=== PATIENT | female | born 1950 | race Caucasian/White ===

== ENCOUNTER 2019-05-01 14:05 | Observation (INO) ==
--- NOTE | 2019-05-01 14:30 | EKG Report ---
Test Performed on : 05/01/2019 2:22:06 PM Test Reason : SOB Blood Pressure : / mmHG Vent. Rate : 107 BPM Atrial Rate : 107 BPM P-R Int : 122 ms QRS Dur : 074 ms QT Int : 340 ms P-R-T Axes : 046 027 042 degrees QTc Int : 453 ms Sinus tachycardia. with occasional premature ventricular complexes. Nonspecific ST and T wave abnormality Abnormal ECG When compared with ECG of 15-SEP-2017 11:37, premature ventricular complexes. are now present Nonspecific T wave abnormality now evident in Anterior leads Unconfirmed Result
--- NOTE | 2019-05-01 15:13 | Diag Imaging Result Doc PS360 ---
EXAM: CHEST-2 VIEWS 05/01/2019 HISTORY: SHORTNESS OF BREATH TECHNIQUE: PA and lateral chest COMMENT: There is no evidence of acute cardiac or pulmonary disease. The inspiration is slightly better than on 09/15/2017 otherwise are has been no significant change. IMPRESSION: No acute disease. Electronically signed by Tee Johnson 05/01/2019 3:11 PM
[2019-05-01] MEDS ORDERED: ATIVAN IV ONE ×2 (15:37→23:08)
[2019-05-01] MEDS ORDERED: ZOFRAN IV ONE ×2 (15:38→21:30)
--- NOTE | 2019-05-01 16:08 | Diag Imaging Result Doc PS360 ---
EXAM: CT HEAD W/O CONTRAST 05/01/2019 HISTORY: HEADACHE WEAKNESS TECHNIQUE: This exam was performed using automated exposure control, adjustment of mA or kV according to patient size, and/or use of iterative reconstruction technique. COMMENT: There is no evidence of mass effect, bleed, abnormal extra-axial fluid collection, or hydrocephalus. The visualized paranasal sinuses are clear. The calvarium is intact. IMPRESSION: No evidence of acute intracranial disease. Electronically signed by Tee Johnson 05/01/2019 4:06 PM
[2019-05-01 16:13] LABS: INR 0.95; PROTIME 12.8 Seconds (11.0-16.0)
[2019-05-01 16:14] LABS: PTT 24.4 Seconds (22.3-41.8)
[2019-05-01 16:15] LABS: ALLEN TEST YES; BE -3.3 mmoll (-3.0-3.0); BLOOD TYPE ARTERIAL; HCO3-(ACT) 22.3 mmoll (20.0-26.0); METHB 1.3 % (0.0-1.5); O2(CT) 19.5 mL/dL (15.0-23.0); O2HB 97.1 % (95.0-99.0); PO2(98.6) 135 mmHg (60-100); SAMPLE BLOOD; SAO2 99.4 % (95.0-100.0); THB 14.1 g/dL (11.5-17.4)
[2019-05-01 16:15] LABS: BASO# 0.02 X1000 (0.0-0.2); BASO% 0.3 % (0.0-0.8); EOS# 0.03 X1000 (0.0-0.7); EOS% 0.5 % (0.0-10.0); HEMATOCRIT 39.5 % (37.0-47.0); HEMOGLOBIN 14.1 g/dL (12.0-16.0); LYMPH# 2.34 X1000 (1.2-3.4); LYMPH% 37.6 % (20.5-51.1); MCH 30.9 PG (27-31); MCHC 35.7 g/dL (33-37); MCV 86.6 FL (81-99); MPV 10.9 FL (7.4-10.4); NEUT# 3.33 X1000 (1.4-6.5); NEUT% 53.6 % (42.2-75.2); PLT 297 X1000 (130-400); RBC 4.56 XMIL (4.2-5.4); RDW 12.3 % (11.5-14.5); WBC 6.22 X1000 (4.8-10.8)
[2019-05-01 16:16] LABS: PCO2(98.6) 13 mmHg (35-45); pH(98.6) 7.64 (7.35-7.45)
[2019-05-01 16:17] LABS: MODALITY ROOM AIR
[2019-05-01] MEDS ORDERED: NS 1,000 ML IV ONE (16:27)
[2019-05-01 16:35] LABS: ESTIMATED GFR > 60
[2019-05-01 16:40] LABS: AGAP 27; ALB/GLOB RATIO 2.3; ALBUMIN 4.8 g/dL (3.5-5.0); ALKALINE PHOSPHATASE 92 U/L (32-104); BUN 19 mg/dL (8-22); CHLORIDE 97 mmol/L (98-107); CK PROFILE 125 U/L (24-173); COSMO 281; CREATININE 0.8 mg/dL (0.5-0.9); GLUCOSE 156 mg/dL (70-104); GOT 23 U/L (10-30); GPT 21 U/L (10-36); POTASSIUM 2.9 mmol/L (3.5-5.1); SODIUM 138 mmol/L (136-145); TCO2 14 mmol/L (25-35); TOTAL BILIRUBIN 0.52 mg/dL (0.20-1.00); TOTAL PROTEIN 6.9 g/dL (6.3-8.3)
--- NOTE | 2019-05-01 19:34 | PROVIDER DOCUMENTATION ---
This chart was entered by Radha Mcqueen Scribe, acting as scribe for Anuj Phipps MD. HPI-General Adult - General Source: patient - History of Present Illness -Gen Adult Nature of Presenting Problems: Patient is a 68 year old female who presents with anxiety, excessive yawning, shortness of breath, nausea, vomiting and paresthesia to bilateral legs. states symptoms have been present since Wednesday and worsened. Patient denies chest pain. Reports history of vertigo, HTN and anxiety. Location of Pain/Injury: reports: none Pain Radiation: reports: no radiation Quality of Pain: reports: none Severity: reports: mild Onset/Duration: reports: 3 days ago Timing: reports: still present Context/Activities at Onset: reports: light activity Associated Symptoms: reports: anxiety, nausea, shortness of breath, vomiting, other (paresthesia to bilateral lower extremities and excessive yawning) Similar Symptoms Previously?: Yes Recently seen or treated by another doctor?: No <Anuj Phipps - Last Filed: 05/01/19 19:33> <Belem Peacock - Last Filed: 05/01/19 21:25> - General Chief Complaint: Stroke-Like Symptoms Stated Complaint: SOB Time Seen by Provider: 05/01/19 15:31 Allergies/Adverse Reactions: Patient Allergies Allergy/AdvReac Type Severity Reaction Status Date / Time sulfur dioxide Allergy NAUSEA Verified 05/01/19 20:17 acetaminophen [From Lortab] AdvReac NAUSEA/VOMI Verified 09/15/17 16:28 TING hydrocodone [From Lortab] AdvReac NAUSEA/VOMI Verified 09/15/17 16:28 TING meperidine [From Demerol] AdvReac VOMITING Verified 09/15/17 16:28 Home Medications: Home Medication List Medication Instructions Recorded Confirmed Last Taken Type Alendronate Sodium [Fosamax] 10 mg PO ONCE PRN 05/01/19 05/01/19 Unknown History Calcium Citrate/Vitamin D3 1 tab PO QAM 05/01/19 05/01/19 Unknown History [Citracal + D Maximum Caplet] Irbesartan/Hydrochlorothiazide 300 mg PO QAM 05/01/19 05/01/19 Unknown History [Irbesartan-Hctz 300-12.5 mg Tb] Loratadine/Pse E.r. 24 Hr 1 tab PO QAM 05/01/19 05/01/19 Unknown History [Claritin-D 24 Hr] Lysine [l-Lysine] 500 mg PO QHS 05/01/19 05/01/19 Unknown History Sertraline HCl 50 mg PO QHS 05/01/19 05/01/19 Unknown History Vitamin B Complex 1 cap PO QAM 05/01/19 05/01/19 Unknown History Review of Systems - Adult - REVIEW OF SYSTEMS - ADULT Constitutional: reports: no symptoms reported. denies: chills, fever, fatique Eyes: reports: no symptoms reported Ears, Nose, Mouth & Throat: reports: no symptoms reported Cardiovascular: reports: no symptoms reported Respiratory: reports: see HPI, shortness of breath. denies: cough, wheezing Gastrointestinal: reports: see HPI, nausea, vomiting. denies: diarrhea Genitourinary: reports: no symptoms reported Musculoskeletal: reports: no symptoms reported Integumentary: reports: no symptoms reported Neurological: reports: see HPI, paresthesia (bilateral lower extremities.). denies: numbness, syncope Psychiatric: reports: see HPI, anxiety. denies: depression, insomnia Endocrine: reports: no symptoms reported Hematologic/Lymphatic: reports: no symptoms reported Allergic/Immunologic: reports: no symptoms reported All Other Systems: Reviewed and Negative <Anuj Phipps - Last Filed: 05/01/19 19:33> Past History - Adult - PAST MEDICAL HISTORY-ADULT Review of Records: reports: Old Records Reviewed, Nursing Assessment Review, Medications Reviewed, Social history reviewed & non-contributory. Major Childhood Illnesses: reports: denies history Cardiovascular: reports: HTN Respiratory: reports: denies history Gastrointestinal: reports: GERD Obstetrical/Gynecological: reports: denies history Genitourinary: reports: denies history Musculoskeletal: reports: denies history Neurological: reports: denies history Psychiatric: reports: anxiety Endocrine/Immune: reports: denies history Other Conditions: reports: denies history - PRIOR SURGERIES/PROCEDURES Surgical/Procedure History: reports: appendectomy, cholecystectomy, hysterectomy , tonsillectomy - IMMUNIZATION STATUS Childhood Immunizations: See Nurse Assessment Flu Vaccine: See Nurse Assessment - FAMILY HISTORY Family History: reviewed, not pertinent - SOCIAL HISTORY Smoking: denies Substance Use: denies Living Situation: family <Anuj Phipps - Last Filed: 05/01/19 19:33> Physical Exam-General - PHYSICAL EXAM-ADULT Initial Vital Signs Reviewed: Yes - CONSTITUTIONAL General Appearance: alert, no apparent distress, anxious. negative: lethargic - HEAD, EARS, NOSE, MOUTH & THROAT HENMT: normocephalic/atraumatic, moist mucous membranes. negative: angioedema - RESPIRATORY Respiratory: chest non-tender, lungs clear, normal breath sounds. negative: cr ackles, stridor - CARDIOVASCULAR Cardiovascular: normal peripheral pulses, tachycardia. negative: systolic murmur - GASTROINTESTINAL (ABDOMEN) Abdominal Exam: normal bowel sounds, non tender, soft. negative: guarding, rebound - MUSCULOSKELETAL Extremity: normal inspection. negative: deformity, erythema - SKIN Integumentary: normal color, normal turgor, warm/dry. negative: cyanosis, ecchymosis, jaundice - NEUROLOGIC Neurologic: grossly normal. negative: aphasia, facial droop, sensory deficit - PSYCHIATRIC Psych/Mental Status: oriented x 3, anxious. negative: paranoid <Anuj Phipps - Last Filed: 05/01/19 19:33> Progress - PLAN OF CARE/RESULTS Progress/Plan/Lab Results: Vital Signs - 8 hr 05/01/19 14:19 Temperature 97.3 F L Pulse Rate 110 H Respiratory Rate 26 H Blood Pressure 144/70 O2 Sat by Pulse Oximetry 99 Orders Category Date Time Status Cardiac Monitoring DIRECTED Care 05/01/19 14:27 Active Finger Stick Blood Sugar (ED) DIRECTED Care 05/01/19 14:27 Active Oxygen Therapy- ED Nursing DIRECTED Care 05/01/19 14:27 Active Saline Loc NOW Care 05/01/19 14:27 Active CHEST-2 VIEWS [RAD] Stat Exams 05/01/19 14:[address] HEAD W/O CONTRAST [CT] Stat Exams 05/01/19 14:33 Ordered ABG [RESP] Routine Lab 05/01/19 14:27 Ordered CBC WITH ELECTRONIC DIFF [HEME] Stat Lab 05/01/19 14:27 Uncollected CK PROFILE [SP CHEM] Stat Lab 05/01/19 14:27 Uncollected COMPREHENSIVE METABOLIC PANEL [CHEM] Stat Lab 05/01/19 14:27 Uncollected PROTIME WITH INR [COAG] Stat Lab 05/01/19 14:27 Uncollected PTT [COAG] Stat Lab 05/01/19 14:27 Uncollected TROPONIN T Stat Lab 05/01/19 14:27 Uncollected Lorazepam [Ativan] Med 05/01/19 15:37 Once 1 mg IV NOW ONE Altered Mental Status Stat Oth 05/01/19 14:27 Ordered EKG [EKG] Stat Ther 05/01/19 14:27 Draft Result Diagrams: 05/01/19 15:34 05/01/19 15:34 - EKG 1 Time of EKG reading by physician:: 14:22 EKG Read and Signed by:: Anuj Phipps EKG Interpretation (*Must complete 3 of following elements*): Abnormal Rate: 107 Rhythm: sinus tachycardia with occasional premature ventricular complexes Crowder: normal CT Interval: normal Comments: nonspecific ST and T wave abnormality. - XRAY 1 XRAY Study: Chest Impression: See EMR Report ( EXAM: CHEST-2 VIEWS 05/01/2019 HISTORY: SHORTNESS OF BREATH TECHNIQUE: PA and lateral chest COMMENT: There is no evidence of acute cardiac or pulmonary disease. The inspiration is slightly better than on 09/15/2017 otherwise are has been no significant change. IMPRESSION: No acute disease. Electronically signed by Tee Johnson 05/01/2019 3:11 PM 05/01/19 1511 Interpreting Physician: Tee Johnson MD Dictated Date/Time: 05/01/19 1510 cc: Anuj Phipps MD; Ashu Wang MD) - CT/MRI 1 CT Study: Head Impression: See EMR Report (EXAM: CT HEAD W/O CONTRAST 05/01/2019 HISTORY: HEADACHE WEAKNESS TECHNIQUE: This exam was performed using automated exposure control, adjustment of mA or kV according to patient size, and/or use of iterative reconstruction technique. COMMENT: There is no evidence of mass effect, bleed, abnormal extra-axial fluid collection, or hydrocephalus. The visualized paranasal sinuses are clear. The calvarium is intact. IMPRESSION: No evidence of acute intracranial disease. Electronically signed by Tee Johnson 05/01/2019 4:06 PM 05/01/19 1606 Interpreting Physician: Tee Johnson MD Dictated Date/Time: 05/01/19 1605 cc: Anuj Phipps MD; Ashu Wang MD) - CHANGE OF SHIFT REPORT (ED Provider) 1 Report Given and Care Transferred to:: Dr Peacock Time of Transfer: 19:00 Items Pending: Labs <Anuj Phipps - Last Filed: 05/01/19 19:33> - PLAN OF CARE/RESULTS Progress/Plan/Lab Results: Vital Signs - 8 hr 05/01/19 14:19 05/01/19 15:37 05/01/19 16:10 Temperature 97.3 F L Pulse Rate 110 H 102 H 83 Respiratory Rate 26 H 19 14 Blood Pressure 144/70 129/71 O2 Sat by Pulse Oximetry 99 98 99 05/01/19 16:24 05/01/19 17:02 05/01/19 17:20 Temperature Pulse Rate 82 74 76 Respiratory Rate 17 8 L 9 L Blood Pressure 150/87 133/53 O2 Sat by Pulse Oximetry 99 100 100 05/01/19 18:02 05/01/19 18:40 05/01/19 18:50 Temperature Pulse Rate 69 79 84 Respiratory Rate 17 20 20 Blood Pressure 134/60 O2 Sat by Pulse Oximetry 100 100 99 05/01/19 19:00 05/01/19 19:02 05/01/19 19:03 Temperature Pulse Rate 72 74 71 Respiratory Rate 20 20 9 L Blood Pressure 157/77 O2 Sat by Pulse Oximetry 99 100 100 05/01/19 19:10 05/01/19 19:20 05/01/19 19:30 Temperature Pulse Rate 70 65 73 Respiratory Rate 19 13 16 Blood Pressure O2 Sat by Pulse Oximetry 98 96 95 05/01/19 19:40 05/01/19 19:50 05/01/19 20:00 Temperature Pulse Rate 71 69 76 Respiratory Rate 10 L 20 17 Blood Pressure O2 Sat by Pulse Oximetry 99 97 99 05/01/19 20:02 05/01/19 20:03 05/01/19 20:10 Temperature Pulse Rate 72 77 72 Respiratory Rate 18 14 18 Blood Pressure 138/87 O2 Sat by Pulse Oximetry 98 100 100 05/01/19 20:20 05/01/19 20:30 05/01/19 20:40 Temperature Pulse Rate 72 76 86 Respiratory Rate 20 16 20 Blood Pressure O2 Sat by Pulse Oximetry 99 98 99 05/01/19 20:50 Temperature Pulse Rate 77 Respiratory Rate 20 Blood Pressure O2 Sat by Pulse Oximetry 99 Laboratory Results - last 24 hr 05/01/19 05/01/19 05/01/19 14:31 15:34 15:34 WBC 6.22 RBC 4.56 Hgb 14.1 Hct 39.5 MCV 86.6 MCH 30.9 MCHC 35.7 RDW Std Deviation 12.3 Plt Count 297 MPV 10.9 H Immature Gran % (Auto) 0.0 Neut % (Auto) 53.6 Lymph % (Auto) 37.6 [place] % (Auto) 8.0 Eos % (Auto) 0.5 Baso % (Auto) 0.3 Immature Gran # (Auto) 0.00 Neut # (Auto) 3.33 Lymph # (Auto) 2.34 [place] # (Auto) 0.50 Eos # (Auto) 0.03 Baso # (Auto) 0.02 PT INR PTT (Actin FS) D-Dimer, Quantitative Specimen Type Sample Site pH pCO2 pO2 HCO3 Base Excess Oxyhemoglobin ABG O2 Sat (Calculated) ABG O2 Saturation ABG Carboxyhemoglobin ABG Methemoglobin Todd Test A-a O2 Difference Total Hemoglobin Lactate Blood Gas Modality FiO2 % Sodium 138 Potassium 2.9 L Chloride 97 L Carbon Dioxide 14 L Anion Gap 27 BUN 19 Creatinine 0.8 Estimated GFR/1.73 m2 > 60 BUN/Creatinine Ratio 24 Glucose 156 H POC Glucose 118 H Calculated Osmolality 281 Calcium 10.0 Total Bilirubin 0.52 AST 23 ALT 21 Alkaline Phosphatase 92 Creatine Kinase 125 Troponin T Total Protein 6.9 Albumin 4.8 Globulin 2.1 Albumin/Globulin Ratio 2.3 Urine Source Urine Color Urine Turbidity Urine pH Ur Specific [place] Urine Protein Ur Glucose (Stick) Ur Ketones (Stick) Urine Blood Urine Nitrite Urine Bilirubin Urobilinogen Dipstick Urine Leukocytes Urine WBC (Auto) Urine RBC (Auto) U Epithel Cells (Auto) Urine Bacteria (Auto) 05/01/19 05/01/19 05/01/19 15:34 15:34 15:34 WBC RBC Hgb Hct MCV MCH MCHC RDW Std Deviation Plt Count MPV Immature Gran % (Auto) Neut % (Auto) Lymph % (Auto) [place] % (Auto) Eos % (Auto) Baso % (Auto) Immature Gran # (Auto) Neut # (Auto) Lymph # (Auto) [place] # (Auto) Eos # (Auto) Baso # (Auto) PT 12.8 INR 0.95 PTT (Actin FS) 24.4 D-Dimer, Quantitative 0.31 Specimen Type Sample Site pH pCO2 pO2 HCO3 Base Excess Oxyhemoglobin ABG O2 Sat (Calculated) ABG O2 Saturation ABG Carboxyhemoglobin ABG Methemoglobin Todd Test A-a O2 Difference Total Hemoglobin Lactate Blood Gas Modality FiO2 % Sodium Potassium Chloride Carbon Dioxide Anion Gap BUN Creatinine Estimated GFR/1.73 m2 BUN/Creatinine Ratio Glucose POC Glucose Calculated Osmolality Calcium Total Bilirubin AST ALT Alkaline Phosphatase Creatine Kinase Troponin T < 0.010 Total Protein Albumin Globulin Albumin/Globulin Ratio Urine Source Urine Color Urine Turbidity Urine pH Ur Specific [place] Urine Protein Ur Glucose (Stick) Ur Ketones (Stick) Urine Blood Urine Nitrite Urine Bilirubin Urobilinogen Dipstick Urine Leukocytes Urine WBC (Auto) Urine RBC (Auto) U Epithel Cells (Auto) Urine Bacteria (Auto) 05/01/19 05/01/19 05/01/19 15:52 16:10 18:40 WBC RBC Hgb Hct MCV MCH MCHC RDW Std Deviation Plt Count MPV Immature Gran % (Auto) Neut % (Auto) Lymph % (Auto) [place] % (Auto) Eos % (Auto) Baso % (Auto) Immature Gran # (Auto) Neut # (Auto) Lymph # (Auto) [place] # (Auto) Eos # (Auto) Baso # (Auto) PT INR PTT (Actin FS) D-Dimer, Quantitative Specimen Type ARTERIAL Sample Site L RADIAL pH 7.64 H* pCO2 13 L* pO2 135 H HCO3 22.3 Base Excess -3.3 L Oxyhemoglobin 97.1 ABG O2 Sat (Calculated) 19.5 ABG O2 Saturation 99.4 ABG Carboxyhemoglobin 1.00 ABG Methemoglobin 1.3 Todd Test YES A-a O2 Difference -2.0 Total Hemoglobin 14.1 Lactate 6.40 H* Blood Gas Modality ROOM AIR FiO2 % 21.0 Sodium Potassium Chloride Carbon Dioxide Anion Gap BUN Creatinine Estimated GFR/1.73 m2 BUN/Creatinine Ratio Glucose POC Glucose 154 H Calculated Osmolality Calcium Total Bilirubin AST ALT Alkaline Phosphatase Creatine Kinase Troponin T Total Protein Albumin Globulin Albumin/Globulin Ratio Urine Source CLEAN CATCH Urine Color YELLOW Urine Turbidity CLEAR Urine pH 7.0 Ur Specific [place] 1.016 Urine Protein NEGATIVE Ur Glucose (Stick) NEGATIVE Ur Ketones (Stick) 80 A Urine Blood NEGATIVE Urine Nitrite NEGATIVE Urine Bilirubin NEGATIVE Urobilinogen Dipstick NORMAL Urine Leukocytes NEGATIVE Urine WBC (Auto) <10 Urine RBC (Auto) <10 U Epithel Cells (Auto) <10 Urine Bacteria (Auto) NEGATIVE 05/01/19 19:54 WBC RBC Hgb Hct MCV MCH MCHC RDW Std Deviation Plt Count MPV Immature Gran % (Auto) Neut % (Auto) Lymph % (Auto) [place] % (Auto) Eos % (Auto) Baso % (Auto) Immature Gran # (Auto) Neut # (Auto) Lymph # (Auto) [place] # (Auto) Eos # (Auto) Baso # (Auto) PT INR PTT (Actin FS) D-Dimer, Quantitative Specimen Type Sample Site pH pCO2 pO2 HCO3 Base Excess Oxyhemoglobin ABG O2 Sat (Calculated) ABG O2 Saturation ABG Carboxyhemoglobin ABG Methemoglobin Todd Test A-a O2 Difference Total Hemoglobin Lactate Blood Gas Modality FiO2 % Sodium Potassium Chloride Carbon Dioxide Anion Gap BUN Creatinine Estimated GFR/1.73 m2 BUN/Creatinine Ratio Glucose POC Glucose 115 H Calculated Osmolality Calcium Total Bilirubin AST ALT Alkaline Phosphatase Creatine Kinase Troponin T Total Protein Albumin Globulin Albumin/Globulin Ratio Urine Source Urine Color Urine Turbidity Urine pH Ur Specific [place] Urine Protein Ur Glucose (Stick) Ur Ketones (Stick) Urine Blood Urine Nitrite Urine Bilirubin Urobilinogen Dipstick Urine Leukocytes Urine WBC (Auto) Urine RBC (Auto) U Epithel Cells (Auto) Urine Bacteria (Auto) Orders Category Date Time Status Cardiac Monitoring DIRECTED Care 05/01/19 14:27 Active Finger Stick Blood Sugar (ED) DIRECTED Care 05/01/19 14:27 Active Oxygen Therapy- ED Nursing DIRECTED Care 05/01/19 14:27 Active Saline Loc NOW Care 05/01/19 14:27 Active CHEST-2 VIEWS [RAD] Stat Exams 05/01/19 14:[address] HEAD W/O CONTRAST [CT] Stat Exams 05/01/19 14:33 Completed ABG [RESP] Routine Lab 05/01/19 16:10 Completed BLOOD CULTURE [BLDCUL] Stat Lab 05/01/19 16:40 Results CBC WITH ELECTRONIC DIFF [HEME] Stat Lab 05/01/19 15:34 Completed CK PROFILE [SP CHEM] Stat Lab 05/01/19 15:34 Completed COMPREHENSIVE METABOLIC PANEL [CHEM] Stat Lab 05/01/19 15:34 Completed D-DIMER [COAG] Stat Lab 05/01/19 15:34 Completed Ketone [ACETONE SERUM] [CHEM] Stat Lab 05/01/19 21:08 Uncollected PROTIME WITH INR [COAG] Stat Lab 05/01/19 15:34 Completed PTT [COAG] Stat Lab 05/01/19 15:34 Completed TROPONIN T Stat Lab 05/01/19 15:34 Completed UA [URINALYSIS W/POSS RFLX CULT] [URINALYSIS] Stat Lab 05/01/19 18:40 Completed 0.9% Sodium Chloride Inj [Ns] 1,000 ml Med 05/01/19 16:27 Discontinued IV 999 mls/hr Lorazepam [Ativan] Med 05/01/19 15:37 Discontinued 1 mg IV NOW ONE Ondansetron [Zofran] Med 05/01/19 15:38 Discontinued 4 mg IV NOW ONE Potassium Chloride 10 Meq/Swi Med 05/01/19 19:57 Discontinued 10 meq in 100 ml IV ONCE Potassium Chloride E.r. [Klor-Con] Med 05/01/19 19:59 Discontinued 40 meq PO NOW ONE Altered Mental Status Stat Oth 05/01/19 14:27 Ordered EKG [EKG] Stat Ther 05/01/19 14:27 Draft Result Diagrams: 05/01/19 15:34 05/01/19 15:34 - CONSULTS/PCP/HOSPITALIST Notification #1 *Consult/PCP/Hospitalist*: D/W DR BARNETT Time Discussed: 21:24 Consult Disposition: Admit <Belem Peacock - Last Filed: 05/01/19 21:25> Departure <Anuj Phipps - Last Filed: 05/01/19 19:33> - Departure Date of Disposition Decision: 05/01/19 Time of Disposition Decision: 21:24 Certified Medical Emergency: Emergent - Critical Care Note This patient required my direct & personal management of CC.: No <Belem Peacock - Last Filed: 05/01/19 21:25> - Departure DIAGNOSIS: Metabolic alkalosis, Hypokalemia, Elevated serum lactate dehydrogenase (LDH) Disposition: ADMITTED INPATIENT 09 Condition: Stable Referrals and Follow-Ups: Ashu Wang MD [Primary Care Provider] - Attestation - Physician/ GIGI Attestation The physician spent face to face time with patient:: Yes Advanced Practice Provider documentation review:: Supervising physician onsite and consulted in the evaluation and care of this patient. The physician did have a face to face encounter with the patient. <Anuj Phipps - Last Filed: 05/01/19 19:33> This chart was documented by the indicated scribe, (Radha Mcqueen Scribe) and accurately reflects the services I performed and decisions made by me, Anuj Phipps MD, as attested by the provider's signature.
[2019-05-01 19:45] LABS: URINE SOURCE CLEAN CATCH
[2019-05-01 19:55] LABS: UR EPITHELIAL CELLS <10 /HPF (<10); URINE BACTERIA NEGATIVE /HPF; URINE RBC <10 /HPF (<10); URINE WBC <10 /HPF (<10)
[2019-05-01] MEDS ORDERED: POTASSIUM CHLORIDE 10 MEQ/SWI 10 MEQ/100 ML IVPB IV ONE (19:57)
[2019-05-01 19:58] LABS: BILIRUBIN URINE NEGATIVE (NEGATIVE); BLOOD URINE NEGATIVE (NEGATIVE); COLOR YELLOW; GLUCOSE URINE NEGATIVE (NEGATIVE); KETONE URINE 80 mg/dL (NEGATIVE); LEUKOCYTES URINE NEGATIVE (NEGATIVE); NITRITE URINE NEGATIVE (NEGATIVE); PROTEIN URINE NEGATIVE (NEGATIVE); SP GRAVITY URINE 1.016; TURBIDITY URINE CLEAR (CLEAR); UROBILINOGEN URINE NORMAL (NORMAL)
[2019-05-01] MEDS ORDERED: KLOR-CON PO ONE (19:59)
[2019-05-01] MEDS ORDERED: ZOLOFT PO SCH (21:00)
[2019-05-01] MEDS ORDERED: LOVENOX SUBQ SCH (22:21)
[2019-05-01] MEDS ORDERED: ZOFRAN IV PRN (22:21)
[2019-05-01] MEDS: NS 1,000 ML IV SCH (23:46)
[2019-05-01 23:58] LABS: HEMOGLOBIN A1C 4.9 % (4.8-6.0)
[2019-05-02 02:17] LABS: URINE SOURCE CLEAN CATCH
[2019-05-02 02:26] LABS: BILIRUBIN URINE NEGATIVE (NEGATIVE); BLOOD URINE NEGATIVE (NEGATIVE); COLOR STRAW; GLUCOSE URINE NEGATIVE (NEGATIVE); KETONE URINE 10 mg/dL (NEGATIVE); LEUKOCYTES URINE NEGATIVE (NEGATIVE); NITRITE URINE NEGATIVE (NEGATIVE); PROTEIN URINE NEGATIVE (NEGATIVE); SP GRAVITY URINE 1.006; TURBIDITY URINE CLEAR (CLEAR); UROBILINOGEN URINE NORMAL (NORMAL)
[2019-05-02 02:29] LABS: UR EPITHELIAL CELLS <10 /HPF (<10); URINE BACTERIA NEGATIVE /HPF; URINE RBC <10 /HPF (<10); URINE WBC <10 /HPF (<10)
--- NOTE | 2019-05-02 06:16 | HISTORY AND PHYSICAL ---
PRIMARY CARE PROVIDER: Ashu Wang MD CHIEF COMPLAINT: Excessive yawning and shortness of breath since last Wednesday or . HISTORY OF PRESENT ILLNESS: Apparently she has had a history of anxiety, hypertension and vertigo. She does take Zoloft for generalized anxiety. Apparently since last Wednesday this has worsened, the shortness of breath and anxiety. She feels as if she is yawning to take a deep breath. At any rate, today she started having some nausea with vomiting, began to hyperventilate and started feeling paresthesias in bilateral legs. When her ABGs were checked in the emergency room she had blown off her CO2; it was 13. She was noticed to be in respiratory alkalosis. Otherwise, her labs were grossly normal other than a potassium of 2.9. CT scan was obtained as well as a chest x-ray which were both grossly normal. Lungs were maybe mildly hyperinflated, but otherwise chest x-ray showed no acute disease. She will be placed on observation status for further evaluation and treatment. PAST MEDICAL HISTORY: Hypertension, anxiety, seasonal allergies. PREVIOUS SURGICAL HISTORY: Tonsillectomy, appendectomy, cholecystectomy, bilateral tubal ligation. SOCIAL HISTORY: She works with [employer]. She is and lives with her . No tobacco, alcohol or illicit drugs. Has been around heavy secondary smoke for most of her life. FAMILY HISTORY: Sister and parents all had coronary artery disease and myocardial infarction. Mother also had CVA. ALLERGIES: [place], meperidine, and sulfa, all causing nausea and vomiting. HOME MEDICATIONS: Calcitriol plus D maximum tablet 1 p.o. q.a.m., Claritin D 1 p.o. q.a.m., Lysine 500 mg p.o. at bedtime, sertraline 50 mg p.o. at bedtime, Fosamax 10 mg p.o. one p.r.n., irbesartan/hydrochlorothiazide 300/12.5 p.o. q.a.m., vitamin B complex 1 p.o. q.a.m. REVIEW OF SYSTEMS: A 14-point review of systems conducted with the patient. Pertinent positives listed above in the HPI. All other systems were reviewed and found to be negative. PHYSICAL EXAMINATION: VITAL SIGNS: Temperature 98.3, pulse 73, respiration 16, blood pressure 137/78, oxygen saturation 100% on room air. GENERAL: A pleasant 68-year-old female lying in the medical floor bed; answers all questions appropriately. She is alert and oriented x3, seems somewhat anxious. HEENT: Head is atraumatic, normocephalic. Pupils equal, round and reactive to light. Extraocular eye movements intact. Sclerae are anicteric. Conjunctivae are pink. Oral mucosa is moist. NECK: Supple. No JVD. No thyromegaly. Trachea is midline. No cervical lymphadenopathy. CARDIAC: S1, S2 appreciated. No murmurs, gallops or rubs. LUNGS: Clear to auscultation bilaterally. No rhonchi, wheezes or rubs. Symmetric rise and fall with respirations. ABDOMEN: Soft, nondistended, nontender. Bowel sounds present in all 4 quadrants, normoactive. No pulsatile mass. No organomegaly. EXTREMITIES: No clubbing, cyanosis or edema. Two-plus pedal pulses bilaterally. GENITOURINARY: No bladder distention. Patient voids. Otherwise deferred. NEUROLOGICAL: Alert and oriented times 3. Cranial nerves 2-12 grossly intact. No palmar drift. No facial asymmetry. No weakness in any extremity. DIAGNOSTIC DATA: CT of the head within normal limits. Chest x-ray may show mild changes related to COPD, but no infiltrates, cardiomegaly, edema or effusions. LABORATORY DATA: CBC within normal limited. Coagulations within normal limits. D-dimer 0.31. ABGs: pH 7.64, pCO2 13, pO2 135, bicarbonate 22.3 (this was on room air). Sodium 138, potassium 2.9, chloride 97, carbon dioxide 14, BUN 19, creatinine 0.8, glucose 156. Urine unremarkable. Acetone normal level. ASSESSMENT AND PLAN: 1. Respiratory alkalosis. Believe this was related to the patient having a panic attack with hyperventilation. She is known to have anxiety. She was given Ativan in the emergency room and has calmed down, and is visibly doing better at this time. Will continue to monitor. 2. Nausea and vomiting. This is of unknown etiology. The patient denies any abdominal pain. She stated that it just started today. I do not know if this was also related to stress and anxiety. Will continue to monitor. Give Zofran as needed. Again, laboratory data was grossly normal. 3. Hypokalemia. This is possibly related to patient's nausea and vomiting. Will replete and recheck. 4. Hyperglycemia. Will check hemoglobin A1c. The patient does not carry a diagnosis of diabetes mellitus. Will continue to monitor. 5. Questionable transient ischemic attack. This feels unlikely, however, CT was negative. Will check a lipid profile, continue to monitor. The patient has no neurological deficits. 6. Further recommendations per patient's clinical course. Dictated by ROBYN Clinton for Justin Mitchell MD I have performed a face to face diagnostic evaluation. Labs/ Xrays- reviewed. Exam- chest- clear, CV-regular. A/P- Nausea and vomiting, hypokalemia- Admit, IV fluids, replace potassium. Dr. Mitchell cc: ROBYN Clinton MD [facility] Mashburn, MD [facility]
[2019-05-02 07:20] LABS: BASO# 0.01 X1000 (0.0-0.2); BASO% 0.2 % (0.0-0.8); EOS# 0.02 X1000 (0.0-0.7); EOS% 0.4 % (0.0-10.0); HEMATOCRIT 34.7 % (37.0-47.0); LYMPH# 1.71 X1000 (1.2-3.4); LYMPH% 30.3 % (20.5-51.1); MCH 30.8 PG (27-31); MCHC 34.6 g/dL (33-37); MONO# 0.59 X1000 (0.11-0.59); MONO% 10.4 % (1.7-9.3); MPV 10.3 FL (7.4-10.4); NEUT# 3.32 X1000 (1.4-6.5); NEUT% 58.7 % (42.2-75.2); PLT 212 X1000 (130-400); RDW 12.5 % (11.5-14.5); WBC 5.65 X1000 (4.8-10.8)
[2019-05-02 08:06] LABS: AGAP 10; BUN 10 mg/dL (8-22); CALCIUM 8.4 mg/dL (8.8-10.2); CHLORIDE 108 mmol/L (98-107); COSMO 281; CREATININE 0.6 mg/dL (0.5-0.9); ESTIMATED GFR > 60; GLUCOSE 83 mg/dL (70-104); MAGNESIUM 1.9 mg/dL (1.5-2.7); POTASSIUM 4.4 mmol/L (3.5-5.1); SODIUM 142 mmol/L (136-145); TCO2 24 mmol/L (25-35)
[2019-05-02 08:08] LABS: CHOLESTEROL 194 mg/dL (0-200); HDL 59 mg/dL (45-65); LDL 115 mg/dL; TRIGLYCERIDES 98 mg/dL (35-135); VLDL 20 mg/dL
[2019-05-02] MEDS ORDERED: AVAPRO PO SCH (09:00)
[2019-05-02] MEDS ORDERED: HYDROCHLOROTHIAZIDE PO SCH (09:00)
[2019-05-02] MEDS ORDERED: VICON-C PO SCH (09:00)
[2019-05-02] MEDS ORDERED: CITRACAL + D PO SCH (09:00)
[2019-05-02] MEDS: NS 1,000 ML IV SCH (09:58)
[2019-05-02 15:51] VITALS: BP 118/57
[2019-05-02] MEDS ORDERED: PATIENT'S OWN MED PO SCH (21:00)
--- NOTE | 2019-05-02 23:43 | DISCHARGE SUMMARY ---
ADMISSION DATE: 05/01/2019 DISCHARGE DATE: 05/02/2019 DISCHARGE DIAGNOSIS: 1. Hypokalemia, symptomatic. 2. Dehydration. 3. Respiratory alkalosis probably from hyperventilation and dehydration. Briefly, this is a 68-year-old female with hypertension, anxiety. 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 She does not usually stay very well hydrated because she is afraid of having to go to the bathroom. She is on a diuretic low-dose hydrochlorothiazide 12.5 and her blood pressure medication. So so she started feeling anxious and having strange sensation of paresthesias in the back of her head. Apparently, her blood pressure was elevated and she came in for evaluation. She started having fairly intractable nausea, vomiting without really good explanation. Her potassium was low at 2.9 and she was placed in obs. All her other workup was negative. She did have a mild metabolic, she really had a metabolic alkalosis with hypochloremia and I think it was probably all just related to profound throwing up and things of that nature. She is much improved since fluids and hydration. Her bicarb has come up to 24. Her potassium is 4.4. Urine is clear. Everything looks good from that standpoint. Plan is to send her home. I am suspicious that the diuretic may have led to her and she may have had a contraction alkalosis and I think she probably needs stop hydrochlorothiazide in favor of another blood pressure medicine. At this point I am just going to leave her on Avapro. It is not even really clear she had a TIA I do not think, she did have some mild hyperglycemia but not enough to constitute a diagnosis of diabetes. Her A1c is only 4.9. I am going to encourage her stay hydrated. Change from Avapro/hydrochlorothiazide to just Avapro plain. She may need additional blood pressure medicine. Her blood pressure was elevated when she came in but since then she has been 108, 118, 111 and I am just going to leave her on plain Avapro and she will need followup in a week with her PCP is Dr. Wang, repeat her potassium levels, blood pressure check and analyze that data to see if anything needs to be adjusted. DISCHARGE MEDICATIONS: Lysine 500 daily, sertraline 50 daily, Caltrate daily, Claritin 10 daily, Fosamax 10 weekly, vitamin B complex and Avapro 300 daily. Refer to Ashu Wang. cc: Eamon Diez MD
[2019-05-06] MEDS ORDERED: FOSAMAX PO SCH (07:00)
== END 2019-05-02 17:47 | disposition home or self-care (01) ==
LOC: ED 14:05 → 3N 14:05 → SUATTDRO 22:04
PROVIDERS: ATTEND Internal Medicine